=== PATIENT | female | born 1960 | race Caucasian/White ===

== ENCOUNTER 2016-06-21 13:11 | Emergency (ER) | payer OTHER ==
[2016-06-21] MEDS ORDERED: Ondansetron 4 MG/2 ML SDV IVPUSH ONE (13:26)
[2016-06-21] MEDS ORDERED: Sodium Chloride 0.9% 1,000 ML IV ONE (13:26)
[2016-06-21] MEDS ORDERED: Pantoprazole 40 MG Vial IVPUSH ONE (13:28)
[2016-06-21] MEDS ORDERED: HYDROmorphone 2 MG/ML SDV IVPUSH ONE (13:29)
--- NOTE | 2016-06-21 13:37 | EDM.PDOC ---
ED HPI GI/ABDOMINAL - General Chief Complaint: Abdominal Pain Stated Complaint: CHEST PAIN Time Seen by Provider: 06/21/16 13:18 Source: Reports: Patient, Family History Limitations: Reports: No limitations - History of Present Illness INITIAL COMMENTS - FREE TEXT/NARRATIVE: 56 years old w sincere barrios came to the ed [facility] due to acute pain at her right upper abdomen 20 min after she ate a subway sandwich. Pt took Nexium in am. Pt felt nauseated, did not vomit however. Pt had a "gallbladder attack" in the past. Her baseline BP is 90/52 Pt denies other medical issues at this time. No trauma. Symptom Onset Date: 06/21/16 Symptom Onset Time: 12:45 Timing/Duration: Reports: Minutes:, Intermittent Location: RUQ Quality: Reports: burning, cramping, fullness Severity: moderate Improves with: Reports: lying down Worsens with: Reports: palpation Context: Reports: bad/questionable food Associated Symptoms (-Female): Reports: nausea/vomiting Treatment(s) INSTRUCTOR PHYSICAL: Reports: Other (see below) (Nexium) - Related Data Allergies/ADRs: Allergies Allergy/AdvReac Type Severity Reaction Status Date / Time No Known Allergies Allergy Verified 06/21/16 13:17 Home Meds: Home Meds Esomeprazole Magnesium [Nexium 24Hr] 20 mg PO DAILY 06/21/16 [History] Social & Family History - Tobacco Use Smoking Status *Q: Never Smoker Second Hand Smoke Exposure: No - Caffeine Use Caffeine Use: Reports: Coffee - Recreational Drug Use Recreational Drug Use: No ED ROS GENERAL - Review of Systems Review Of Systems: See Below Constitutional: Reports: no symptoms HEENT: Reports: No symptoms Respiratory: Reports: No Symptoms Cardiovascular: Reports: No symptoms Endocrine: Reports: no symptoms GI/Abdominal: Reports: Abdominal pain, Nausea : Reports: no symptoms Musculoskeletal: Reports: no symptoms Skin: Reports: no symptoms Neurological: Reports: No Symptoms Psychiatric: Reports: No symptoms Hematologic/Lymphatic: Reports: no symptoms Immunologic: Reports: no symptoms ED EXAM, GI/ABD - Physical Exam Exam: See Below Exam Limited By: No limitations General Appearance: alert, WD/WN, moderate distress, thin Eyes: bilateral: normal appearance Ears: normal external exam Nose: normal inspection, normal mucosa Throat/Mouth: Normal inspection, Normal lips, Normal teeth, Normal gums Head: atraumatic, normocephalic Neck: normal inspection, supple, non-tender Respiratory/Chest: no respiratory distress, lungs clear, normal breath sounds, no accessory muscle use, chest non-tender Cardiovascular: normal peripheral pulses, regular rate, rhythm, no edema, no gallop, no JVD, no murmur, no rub GI/Abdominal: tenderness (RUQ with rebound/guarding), distention (Female) Exam: Deferred Rectal (Female) Exam: Deferred Back Exam: normal inspection, full range of motion Extremities: normal inspection, normal range of motion, non-tender, no pedal edema, normal capillary refill Neurological: alert, oriented, CN II-XII intact, normal cognition, normal gait, normal reflexes, no motor/sensory deficits Psychiatric: normal affect, normal mood Skin Exam: Warm, Dry, Intact, Normal color, No rash Lymphatic: no adenopathy Course - Vital Signs Text/Narrative:: 56 years old w f l came to the ed [facility] due to acute pain at her right upper abdomen 20 min after she ate a subway sandwich. Pt took Nexium in am. Pt felt nauseated, did not vomit however. Pt had a "gallbladder attack" in the past. Her baseline BP is 90/52 Pt denies other medical issues at this time. No trauma. PE: RUQ abd. pain with guarding Labs: Elevated Liver enzymes Imaging: US RUQ of abd. Gallstones with dilated CBD as per RAD, recommended MRCP Impression: Cholelithiasis wit dilated CBD Tx: NS, pt refused pain meds Reexam: Improved, pain subsided while here in the ed. Consultation: Dr. Ta, Surgeon: If pt is comfortable, MRCP in am Plan: MRCP at 9.30 am Last Recorded V/S: Last Vital Signs Temp 36.8 C 06/21/16 13:18 Pulse 66 06/21/16 13:18 Resp 18 06/21/16 13:18 BP 129/68 06/21/16 13:18 Pulse Ox 100 06/21/16 13:18 - Orders/Labs/Meds Orders: Active Orders 24 hr Category Date Time Status Abdomen Ltd [US] Stat Exams 06/21/16 13:29 Ordered Abdomen w Cont [MR] Stat Exams 06/21/16 15:18 Ordered Labs: Laboratory Tests 06/21/16 06/21/16 Range/Units 14:02 14:02 WBC 4.2 L (4.5-12.0) X10-3/uL RBC 3.94 (3.23-5.20) x10(6)uL Hgb 12.1 (11.5-15.5) g/dL Hct 35.9 (30.0-51.3) % MCV 91.0 (80-96) fL MCH 30.7 (27.7-33.6) pg MCHC 33.8 (32.2-35.4) g/dL RDW 13.1 (11.5-15.5) % Plt Count 179 (125-369) X10(3)uL MPV 8.5 (7.4-10.4) fL Neut % (Auto) 65.9 (46-82) % Lymph % (Auto) 26.3 (13-37) % Walsh % (Auto) 5.7 (4-12) % Eos % (Auto) 2 (1.0-5.0) % Baso % (Auto) 0 (0-2) % Neut # (Auto) 2.8 (1.6-8.3) # Lymph # (Auto) 1.1 (0.6-5.0) # Walsh # (Auto) 0.2 (0.0-1.3) # Eos # (Auto) 0.1 (0.0-0.8) # Baso # (Auto) 0.0 (0.0-0.2) # Sodium 139 (135-145) mmol/L Potassium 3.9 (3.5-5.3) mmol/L Chloride 103 (100-110) mmol/L Carbon Dioxide 27 (23-29) mmol/L BUN 22 H (5-20) mg/dL Creatinine 1.1 (0.6-1.3) mg/dL Est Cr Clr Drug Dosing TNP Estimated GFR (MDRD) 51 L (>60) BUN/Creatinine Ratio 20.0 (9-20) Glucose 119 H (80-116) mg/dL Calcium 9.2 (8.6-10.2) mg/dL Total Bilirubin 1.0 (0.1-1.3) mg/dL Direct Bilirubin 0.3 H (0.1-0.2) mg/dL AST 135 H (5-27) IU/L ALT 77 H (14-26) IU/L Alkaline Phosphatase 96 (56-112) IU/L Total Protein 7.1 (6.0-8.0) g/dL Albumin 4.1 (3.5-5.2) g/dL Amylase 46 (28-100) U/L Meds: Medications Discontinued Medications Generic Name Dose Route Start Last Admin Trade Name Freq PRN Reason Stop Dose Admin Hydromorphone HCl 0.5 mg 06/21/16 13:29 06/21/16 14:11 Dilaudid IVPUSH 06/21/16 13:30 Not Given ONETIME ONE Sodium Chloride 1,000 mls @ 999 mls/hr 06/21/16 13:26 06/21/16 14:13 Normal Saline IV 06/21/16 14:26 999 mls/hr .BOLUS ONE Administration Ondansetron HCl 8 mg 06/21/16 13:26 06/21/16 14:13 Zofran IVPUSH 06/21/16 13:27 Not Given ONETIME ONE Pantoprazole Sodium 40 mg 06/21/16 13:28 06/21/16 14:13 Protonix Iv IVPUSH 06/21/16 13:29 40 mg ONETIME ONE Administration Departure - Departure Time of Disposition: 15:21 Disposition: Home, Self-Care 01 Condition: good Clinical Impression: Elevated liver enzymes Gallbladder calculus Qualifiers: Cholecystitis presence: without cholecystitis Biliary obstruction: with biliary obstruction Qualified Code(s): K80.21 - Calculus of gallbladder without cholecystitis with obstruction Referrals: Yolande Dunlap PA [Primary Care Provider] - Forms: ED Department Discharge Additional Instructions: Please came back at 9.30 am tomorrow for an MRCP. Please register at 9.20 am at the maintenance. Please do not eat or drink anything 4 hours before the MRCP study. Please come back to the ED if the symptoms get worse acutely. - My Orders Last 24 Hours: My Active Orders 06/21/16 13:29 Abdomen Ltd [US] Stat 06/21/16 15:18 Abdomen w Cont [MR] Stat - Assessment/Plan Last 24 Hours: My Active Orders 06/21/16 13:29 Abdomen Ltd [US] Stat 06/21/16 15:18 Abdomen w Cont [MR] Stat
[2016-06-21 15:35] VITALS: BP 106/54
--- NOTE | 2016-06-22 07:39 | US ---
INDICATION: Right upper quadrant abdominal pain. RIGHT UPPER QUADRANT/GALLBLADDER ULTRASOUND: Multiple ultrasonic images were obtained 06/21/2016. No comparisons were available. The liver measured 10.6 cm and had a normal appearance. The abdominal aorta measured 2 cm maximally. The common bile duct was dilated at 7 mm. The gallbladder measured 6.3 x 2.4 x 2.6 cm. The right kidney measured 11.3 x 3.9 x 5.4 cm. The IVC was phasic. The abdominal aorta was normal in caliber. The pancreas, as partly visualized, appeared normal. There is a cystic mass at the upper pole of the right kidney, which measured 4.4 x 3.8 x 4.2 cm, likely representing a simple cyst. It is splaying the upper pole of the right kidney, however. This could produce symptoms. Multiple calculi are noted of small size in the gallbladder without wall thickening or pericholecystic fluid. The gallbladder also was not enlarged. The common bile duct is enlarged for age at 7 mm, and there is a positive ultrasonic [place] sign. There also appears to be some sludge in the gallbladder, along with the calculi. IMPRESSION: 1. Common bile duct is enlarged at 7 mm. Etiology is not determined. With the tiny calculi in the gallbladder, the possibility of choledocholithiasis cannot be excluded. 2. Cholelithiasis with positive ultrasonic [place] sign. This raises the possibility of acute cholecystitis; however, other signs of acute cholecystitis were not present, (no enlargement of the gallbladder, no thickening of the wall of the gallbladder, no pericholecystic fluid). 3. 4.4 cm cyst at the upper pole of the right kidney, which is splaying the parenchyma - cortex and could produce symptoms - correlate clinically. Report was called to Dr. Ryan at 1430 hours on 06/21/2016. IMER
== END 2016-06-21 15:30 | disposition home or self-care (01) ==
LOC: FB.ED 13:11
DX: K80.21 Calculus of gallbladder without cholecystitis with obstruction (principal); Z79.899 Other long term (current) drug therapy
CPT/HCPCS: 36415; 76705; 80048; 80076; 82150; 85025; 96361; 96374; 99284; C9113; J7040